=== PATIENT | female | born 1985 | race American Indian/Alaskan Native ===

== ENCOUNTER 2020-02-13 19:37 | Emergency (ER) | payer BC ==
[2020-02-13 19:48] VITALS: BP 155/89
--- NOTE | 2020-02-13 20:33 | Emergency Department Report ---
ED Asthma HPI - General Chief Complaint: Dyspnea/Respdistress Stated Complaint: SOB/ALLERGY Time Seen by Provider: 02/13/20 20:09 Source: patient Mode of arrival: Ambulatory Limitations: No Limitations - History of Present Illness Initial Comments: Patient here report that she is having asthma attack. She has had similar symptoms in the past. She reports shortness of breath, wheezing and coughing. She says she took her nebulizer treatment at home. Denies any nausea or vomiting or diarrhea. Denies any abdominal or back pain. Denies any sore thr oat. Symptoms started 2 days ago and prior to coughing and wheezing she had runny nose and nasal congestion. Patient denies any pain at present. Patient reports that she works from home and has not really been interacting with crowds or anyone that has been sick since November. Denies any known contact with patient with [facility] Complaint: "asthma attack", shortness of breath, wheezing Onset/Timin -: days(s) Asthma History: history of prior ED visit Severity: moderate Context: recent URI, allergen exposure Associated Symptoms: productive cough, other (Chills). denies: chest pain, hemoptysis Treatments Prior to Arrival: inhaled bronchodilator, other (Oral steroids) - Related Data Current Asthma Therapy: inhaled bronchodilator Previous Rx's Medication Instructions Recorded Last Taken Type ALBUTEROL NEB's [Proventil 0.083% 3 ml IH Q6H PRN #1 box 02/13/20 Unknown Rx NEBS] Albuterol INH(or & Nicu Only) 2 puff IH Q6H PRN #1 inhalation 02/13/20 Unknown Rx [ProAir HFA Inhaler] Azithromycin [Zithromax Z-KUN] 250 mg PO DAILY 5 Days #1 pkg 02/13/20 Unknown Rx Benzonatate [Tessalon Perles] 100 mg PO Q8HR PRN #12 capsule 02/13/20 Unknown Rx Cetirizine HCl [ZyrTEC] 10 mg PO QAM 14 Days #14 capsule 02/13/20 Unknown Rx methylPREDNISolone [Medrol 4MG 4 mg PO QDAY 6 Days #1 tab.ds.pk 02/13/20 Unknown Rx DOSEPAK (21 tabs)] Allergies Allergy/AdvReac Type Severity Reaction Status Date / Time No Known Allergies Allergy Unverified 02/13/20 20:59 ED Review of Systems ROS: Stated complaint: SOB/ALLERGY Other details as noted in HPI Constitutional: chills. denies: weakness ENT: congestion. denies: ear pain, throat pain Respiratory: cough, shortness of breath, SOB with exertion, SOB at rest, wheezing. denies: orthopnea, stridor Cardiovascular: denies: chest pain, palpitations, edema, syncope Gastrointestinal: denies: abdominal pain, nausea, vomiting Musculoskeletal: denies: back pain, joint swelling, arthralgia Skin: denies: rash Neurological: denies: headache, vertigo ED Past Medical Hx - Past Medical History Previous Medical History?: Yes Hx Asthma: Yes - Surgical History Past Surgical History?: No - Family History Family history: hypertension - Social History Smoking Status: Former Smoker Substance Use Type: None - Medications Home Medications: Home Medications Medication Instructions Recorded Confirmed Last Taken Type ALBUTEROL NEB's [Proventil 0.083% 3 ml IH Q6H PRN #1 box 02/13/20 Unknown Rx NEBS] Albuterol INH(or & Nicu Only) 2 puff IH Q6H PRN #1 inhalation 02/13/20 Unknown Rx [ProAir HFA Inhaler] Azithromycin [Zithromax Z-KUN] 250 mg PO DAILY 5 Days #1 pkg 02/13/20 Unknown Rx Benzonatate [Tessalon Perles] 100 mg PO Q8HR PRN #12 capsule 02/13/20 Unknown Rx Cetirizine HCl [ZyrTEC] 10 mg PO QAM 14 Days #14 capsule 02/13/20 Unknown Rx methylPREDNISolone [Medrol 4MG 4 mg PO QDAY 6 Days #1 tab.ds.pk 02/13/20 Unknown Rx DOSEPAK (21 tabs)] ED Physical Exam - General Limitations: No Limitations General appearance: alert, in no apparent distress - Head Head exam: Present: atraumatic, normocephalic - Eye Eye exam: Present: normal appearance, PERRL, EOMI - ENT ENT exam: Present: normal orophraynx, mucous membranes moist, normal external ear exam, other (Bilateral nasal mucosa pale and boggy with clear drainage). Absent: TM's normal bilaterally (Bilateral middle ear congested) - Neck Neck exam: Present: normal inspection, full ROM, other (No C-spine tenderness). Absent: tenderness, lymphadenopathy - Respiratory Respiratory exam: Present: wheezes, other (Cough). Absent: respiratory distress, rales, rhonchi, stridor, chest wall tenderness, accessory muscle use, decreased breath sounds, prolonged expiratory - Cardiovascular Cardiovascular Exam: Present: regular rate, normal rhythm, normal heart sounds - GI/Abdominal GI/Abdominal exam: Present: soft, normal bowel sounds. Absent: tenderness - Extremities Exam Extremities exam: Present: normal inspection, full ROM, normal capillary refill, other (No cce. + 2 pulses in all extremities, no neurovascular compromise). Absent: tenderness, pedal edema - Neurological Exam Neurological exam: Present: alert, oriented X3, normal gait - Psychiatric Psychiatric exam: Present: normal affect, normal mood - Skin Skin exam: Present: warm, dry, intact, normal color. Absent: rash ED Course Vital Signs 02/13/20 02/13/20 02/13/20 19:44 20:45 22:11 Temperature 99.3 F 98.4 F Pulse Rate 88 84 Pulse Rate [ 80 Posterior Bilateral Throughout] Respiratory 20 18 Rate Respiratory 18 Rate [Posterior Bilateral Throughout] Blood Pressure 155/89 O2 Sat by Pulse 99 100 Oximetry - Reevaluation(s) Reevaluation #1: 02/13/20 21:04 Patient with asthma exacerbation. She was started on albuterol 10 mg and Atrovent 1 mg nebulizer treatment. Magnesium sulfate 2 g IV started. Patient was given Tylenol 975 mg in emergency room for fever and Decadron 10 mg IV. She is stable and in no acute distress 02/13/20 21:35 Reevaluation #2: 02/13/20 21:35 Lung sounds are better. Patient says she is feeling better. No distress. Reevaluation #3: 02/13/20 22:17 Patient is feeling much better. Her vital signs stable she is afebrile and lung sounds are clear. ED Medical Decision Making - Radiology Data Radiology results: report reviewed Chest x-ray two-view dictated by radiologist and report reviewed by myself. No acute findings. Print Report Referring Physician:YINKA MARIEPatient Name:CAMERON OCONNELLPatient ID:[id number] of :[id number]:FemaleAccession:[id number] Date:[id number] Status:Finalized Findings [facility] [address] [place] [address] XRay Report Signed Patient: CAMERON OCONNELL MR#: [id number] : 1985 Acct:[id number] Age/Sex: 34 / F ADM Date: 02/13/20 Loc: ED Attending Dr: Ordering Physician: KATJA HO Date of Service: 02/13/20 Procedure(s): XR chest routine 2V Accession Number(s): [id number] cc: KATJA HO Fluoro Time In Minutes: CHEST 2 VIEWS INDICATION / CLINICAL INFORMATION: MAIN: cough,sob; HX OF ASTHMA. COMPARISON: None available. FINDINGS: SUPPORT DEVICES: None. HEART / MEDIASTINUM: No significant abnormality. LUNGS / PLEURA: No significant pulmonary or pleural abnormality. No pneumothorax. ADDITIONAL FINDINGS: No significant additional findings. IMPRESSION: No significant abnormality Signer Name: Adolfo Magdaleno MD FACR Signed: 02/13/2020 8:59 PM Workstation Name: [id number] Transcribed By: MS Dictated By: Adolfo Magdaleno MD Electronically Authenticated By: Adolfo Magdaleno MD Signed Date/Time: 02/13/202058 DD/ 58 TD/TT: - Medical Decision Making This is a 34-year-old female here with asthma exacerbation. Patient was treated in emergency room with albuterol, Xopenex and steroids. She was given magnesium sulfate IV. Status post acute treatment her lungs are clear. Patient vital signs stable she is afebrile and she says she is feeling a lot better. She is requesting a refill on her nebulizer and inhaler. Chest x-ray shows no acute processes. Patient is nontoxic in appearance. Discharged home in stable condition with prescription for albuterol nebulizer and inhaler, Tessalon Perle, Medrol Dosepak and Zyrtec. She was also discharged home on Z-Kun. She is to follow-up with her primary care physician in 2 days or return to the emergency room if her symptoms worsen and she voiced understanding. - Differential Diagnosis PNA, bronchitis, asthma exacerbation, sinusitis, URI with cough and congest Critical care attestation.: If time is entered above; I have spent that time in minutes in the direct care of this critically ill patient, excluding procedure time. ED Disposition Clinical Impression: URI with cough and congestion Acute asthma exacerbation Qualifiers: Asthma severity: moderate Asthma persistence: unspecified Qualified Code(s): J45.901 - Unspecified asthma with (acute) exacerbation Disposition: TO HOME OR SELFCARE Is pt being admited?: No Does the pt Need Aspirin: No Condition: Stable Instructions: Asthma (ED), Upper Respiratory Infection (ED) Additional Instructions: Please follow-up with your primary care physician in 2 days. If your symptoms worsens, return to the emergency room Take medication as prescribed Referrals: CHUY WALTER MD [Primary Care Provider] - 02/15/20
[2020-02-13] MEDS ORDERED: ALBUTEROL 2.5 MG/3 ML NEBU IH ONE (20:35)
[2020-02-13] MEDS ORDERED: MAGNESIUM SULFATE 2 GM/50 ML BAG IV ONE (20:35)
[2020-02-13] MEDS ORDERED: ACETAMINOPHEN 325 MG TAB PO ONE (20:35)
[2020-02-13] MEDS ORDERED: IPRATROPIUM 0.02% NEBU 2.5 ML IH ONE (20:35)
[2020-02-13] MEDS ORDERED: dexAMETHasone 20 MG/5 ML VIAL IV ONE (20:35)
--- NOTE | 2020-02-13 21:04 | XRay Report ---
CHEST 2 VIEWS INDICATION / CLINICAL INFORMATION: MAIN: cough,sob; HX OF ASTHMA. COMPARISON: None available. FINDINGS: SUPPORT DEVICES: None. HEART / MEDIASTINUM: No significant abnormality. LUNGS / PLEURA: No significant pulmonary or pleural abnormality. No pneumothorax. ADDITIONAL FINDINGS: No significant additional findings. IMPRESSION: No significant abnormality Signer Name: Adolfo Magdaleno MD FACR Signed: 02/13/2020 8:59 PM Workstation Name: [id number]
== END 2020-02-13 22:30 | disposition home or self-care (01) ==
LOC: ED 19:37
DX: J45.901 Unspecified asthma with (acute) exacerbation (principal); J06.9 Acute upper respiratory infection, unspecified; Z82.49 Family history of ischemic heart disease and other diseases of the circulatory system; Z87.891 Personal history of nicotine dependence; Z79.2 Long term (current) use of antibiotics; Z79.899 Other long term (current) drug therapy
CPT/HCPCS: 71046; 94640; 96365; 96375; 99283; J1100; J3475; 94644